=== PATIENT | female | born 1945 | race Caucasian/White ===

== ENCOUNTER 2021-05-07 10:29 | Inpatient (IN) | payer MEDICARE ==
[2021-05-07] MEDS ORDERED: Diltiazem 125 MG/25 ML ONE ×3 (11:11→22:02)
[2021-05-07 11:39] LABS: Hemoglobin 14.8 g/dL (12.0-16.0); Mean Corpuscular HGB CONC 33.3 g/dL (32.0-36.0); Mean Corpuscular Hemoglobin 30.9 pg (27.0-31.0); Mean Corpuscular Volume 92.7 fL (78.0-98.0); Mean Platelet Volume 9.2 fL (7.4-10.4); Platelet Count 231 thou/uL (130-400); RBC Distribution Width 12.9 % (11.5-14.5); Red Blood Cell (RBC) Count 4.79 mill/uL (4.20-5.40); White Blood Cell (WBC) Count 11.9 thou/uL (4.8-10.8)
[2021-05-07 11:40] LABS: SARS-CoV-2 NAA Rapid Test DETECTED (NotDetected)
[2021-05-07 11:58] LABS: INR-International Normal Ratio 0.9; PTT 26.1 sec (22.9-36.1); Prothrombin Time 12.3 sec (12.0-14.7)
[2021-05-07 12:00] LABS: Band 3 % (5-11); Lymphocytes 6 % (21-51); MDiff Complete? YES; Monocytes 2 % (0-10); Neutrophil 89 % (42-75); Platelet Morphology Comment Appears Adequate
[2021-05-07 12:07] LABS: D-Dimer Test 3.79 *mcg/mL (0.27-0.43)
[2021-05-07 12:29] LABS: CKMB 3.2 ng/mL (0-6.6)
[2021-05-07 12:34] LABS: ALT (SGPT) 26 U/L (8-55); AST (SGOT) 54 U/L (5-34); Albumin 3.3 g/dL (3.4-4.8); Alkaline Phosphatase 143 U/L (40-110); Anion Gap 17 mmol/L (10-20); BUN (Urea Nitrogen) 27 mg/dL (9.8-20.1); Bilirubin, Total 0.5 mg/dL (0.2-1.2); CK (CPK) 49 U/L (29-168); Calc. Creatinine Clearance 0 mL/min (70-130); Calcium 9.5 mg/dL (7.8-10.44); Carbon Dioxide 20 mmol/L (23-31); Chloride 105 mmol/L (98-107); Globulin 3.5 g/dL (2.4-3.5); Glucose 113 mg/dL (83-110); Potassium 4.9 mmol/L (3.5-5.1); Protein, Total 6.8 g/dL (5.8-8.1); Sodium 137 mmol/L (136-145)
[2021-05-07] MEDS ORDERED: Albuterol 200 PUFF (6.7GM INHALER) ONE (13:44)
[2021-05-07] MEDS ORDERED: Amiodarone 150 MG in Dextrose 5% in Water 100 ML IVPB SCH (15:00)
[2021-05-07] MEDS ORDERED: Amiodarone In Dextrose 200 ML IVPB SCH (15:15)
[2021-05-07 15:53] LABS: Lactic Acid 1.5 mmol/L (0.5-2.2)
[2021-05-07] MEDS ORDERED: Ondansetron PF 4 MG/2 ML Vial IVP PRN (21:51)
[2021-05-07] MEDS ORDERED: Benzonatate 100 MG CAP PO PRN (21:51)
[2021-05-07] MEDS ORDERED: Ondansetron ODT 4 MG TAB PO PRN (21:51)
[2021-05-07] MEDS ORDERED: hydrALAZINE 20 MG/ML VIAL SLOW IVP PRN (21:51)
[2021-05-07] MEDS ORDERED: Dexamethasone 10 MG/ML VIAL SLOW IVP SCH (22:00)
[2021-05-07] MEDS ORDERED: Enoxaparin Sodium 100 MG/ML SYRINGE SC SCH (22:00)
[2021-05-07] MEDS ORDERED: Famotidine 20 MG TAB PO SCH (22:00)
[2021-05-07] MEDS ORDERED: Cholecalciferol 1,000 UNITS (25 MCG) TAB PO SCH (22:00)
[2021-05-07] MEDS ORDERED: Acetaminophen 325 MG TAB ONE ×2 (22:15→22:16)
[2021-05-07] MEDS ORDERED: Enoxaparin Sodium 100 MG/ML SYRINGE ONE (22:17)
[2021-05-07] MEDS ORDERED: Cholecalciferol 1,000 UNITS (25 MCG) TAB ONE (22:20)
[2021-05-07] MEDS ORDERED: Pharmacy to Dose REMDESIVIR IVPB PRN (22:23)
[2021-05-07] MEDS: Acetaminophen 500 MG TAB PO PRN (22:24)
[2021-05-07] MEDS ORDERED: Pharmacy to Dose BARICITINIB PO PRN (22:25)
[2021-05-07] MEDS ORDERED: Acetaminophen 500 MG TAB ONE ×2 (22:27)
[2021-05-07] MEDS ORDERED: Metoprolol Tartrate 5 MG/5 ML VIAL ONE ×2 (22:36→23:22)
[2021-05-07] MEDS ORDERED: Dexamethasone 4 mg/ml Vial ONE (23:06)
[2021-05-07] MEDS: Metoprolol Tartrate 5 MG/5 ML VIAL IVP PRN ×2 (23:15→23:22)
[2021-05-07] MEDS: Amiodarone 450 MG, Admixture Fee 1 EACH in Dextrose 5% in Water 250 ML IVPB SCH (23:57)
[2021-05-08] MEDS ORDERED: Famotidine/PF 20 mg/2ml Vial ONE (00:08)
[2021-05-08 07:03] LABS: #Lymphocytes 0.5 thou/uL (1.20-3.40); #Monocytes 0.5 thou/uL (0.11-0.59); #Neutrophils 12.7 thou/uL (1.40-6.50); %Basophils 0.1 % (0.0-1.0); %Eosinophils 0.2 % (0.0-10.0); %Lymphocytes 3.8 % (21.0-51.0); %Monocytes 3.7 % (0.0-10.0); %Neutrophils 92.2 % (42.0-75.0); Hemoglobin 14.1 g/dL (12.0-16.0); Mean Corpuscular HGB CONC 31.7 g/dL (32.0-36.0); Mean Corpuscular Hemoglobin 29.5 pg (27.0-31.0); Mean Corpuscular Volume 93.1 fL (78.0-98.0); Mean Platelet Volume 8.4 fL (7.4-10.4); Platelet Count 179 thou/uL (130-400); Red Blood Cell (RBC) Count 4.77 mill/uL (4.20-5.40); White Blood Cell (WBC) Count 13.8 thou/uL (4.8-10.8)
[2021-05-08 07:18] LABS: ALT (SGPT) 22 U/L (8-55); AST (SGOT) 47 U/L (5-34); Albumin 3.2 g/dL (3.4-4.8); Alkaline Phosphatase 150 U/L (40-110); Anion Gap 13 mmol/L (10-20); BUN (Urea Nitrogen) 31 mg/dL (9.8-20.1); Bilirubin, Total 0.5 mg/dL (0.2-1.2); CRP (Inflammatory) 11.58 mg/dL (= or < 0.5); Calc. Creatinine Clearance 50 mL/min (70-130); Calcium 9.6 mg/dL (7.8-10.44); Carbon Dioxide 19 mmol/L (23-31); Chloride 102 mmol/L (98-107); Globulin 3.3 g/dL (2.4-3.5); Glucose 164 mg/dL (83-110); Magnesium 2.1 mg/dL (1.6-2.6); Potassium 4.9 mmol/L (3.5-5.1); Protein, Total 6.5 g/dL (5.8-8.1); Sodium 129 mmol/L (136-145)
[2021-05-08] MEDS ORDERED: Diltiazem 125 MG/25 ML ONE (07:41)
[2021-05-08] MEDS ORDERED: Lorazepam 2 MG/ML VIAL ONE (08:04)
[2021-05-08] MEDS ORDERED: Digoxin 0.5 MG/2 ML AMP ONE ×3 (08:09→14:09)
[2021-05-08] MEDS ORDERED: Digoxin 0.5 MG/2 ML AMP SLOW IVP SCH ×3 (08:15→20:00)
[2021-05-08] MEDS ORDERED: Sodium Chloride 0.9% 1,000 ML IV SCH (08:15)
[2021-05-08] MEDS ORDERED: Lorazepam 2 MG/ML VIAL SLOW IVP SCH (08:15)
[2021-05-08] MEDS ORDERED: REMDESIVIR 200 MG in Sodium Chloride 0.9% 250 ML 210 ML IV SCH (08:45)
[2021-05-08] MEDS ORDERED: Enoxaparin Sodium 100 MG/ML SYRINGE ONE (09:01)
[2021-05-08] MEDS ORDERED: Dexamethasone 4 mg/ml Vial ONE (09:01)
[2021-05-08] MEDS ORDERED: Zinc Sulfate 220 MG CAP ONE (09:03)
[2021-05-08] MEDS ORDERED: Ascorbic Acid 500 mg Chewable Tablet ONE (09:04)
[2021-05-08] MEDS: Dexamethasone 10 MG/ML VIAL SLOW IVP SCH ×2 (09:08→21:49)
[2021-05-08] MEDS: BARICITINIB 2 MG TAB PO SCH (09:09)
[2021-05-08] MEDS: Ascorbic Acid 500 mg Chewable Tablet PO SCH (09:09)
[2021-05-08] MEDS: Zinc Sulfate 220 MG CAP PO SCH (09:09)
[2021-05-08] MEDS: Sodium Chloride 0.9% 1,000 ML IV SCH ×2 (09:10→21:12)
[2021-05-08] MEDS ORDERED: Furosemide 20 MG/2 ML VIAL SLOW IVP SCH (11:35)
[2021-05-08] MEDS ORDERED: Furosemide 20 MG/2 ML VIAL ONE (11:40)
[2021-05-08] MEDS: Digoxin 0.5 MG/2 ML AMP SLOW IVP SCH ×3 (14:04→14:13)
[2021-05-08 14:18] VITALS: BP 131/74
[2021-05-08] MEDS: Famotidine 20 MG TAB PO SCH (21:17)
[2021-05-08] MEDS: Cholecalciferol 1,000 UNITS (25 MCG) TAB PO SCH (21:17)
[2021-05-08] MEDS: Cepastat Lozenges 1 LOZ PO PRN (23:18)
[2021-05-08] MEDS: Acetaminophen 500 MG TAB PO PRN (23:31)
[2021-05-09] MEDS: Amiodarone 450 MG, Admixture Fee 1 EACH in Dextrose 5% in Water 250 ML IVPB SCH ×2 (03:12→19:41)
[2021-05-09 03:40] LABS: #Lymphocytes 0.6 thou/uL (1.20-3.40); #Monocytes 0.4 thou/uL (0.11-0.59); #Neutrophils 8.7 thou/uL (1.40-6.50); %Basophils 0.1 % (0.0-1.0); %Eosinophils 0.2 % (0.0-10.0); %Lymphocytes 6.5 % (21.0-51.0); %Monocytes 4.4 % (0.0-10.0); %Neutrophils 88.9 % (42.0-75.0); Hemoglobin 13.3 g/dL (12.0-16.0); Mean Corpuscular HGB CONC 32.2 g/dL (32.0-36.0); Mean Corpuscular Hemoglobin 30.2 pg (27.0-31.0); Mean Corpuscular Volume 93.7 fL (78.0-98.0); Mean Platelet Volume 8.4 fL (7.4-10.4); Platelet Count 190 thou/uL (130-400); Red Blood Cell (RBC) Count 4.42 mill/uL (4.20-5.40); White Blood Cell (WBC) Count 9.8 thou/uL (4.8-10.8)
[2021-05-09 03:56] LABS: ALT (SGPT) 21 U/L (8-55); AST (SGOT) 32 U/L (5-34); Albumin 2.9 g/dL (3.4-4.8); Alkaline Phosphatase 149 U/L (40-110); Anion Gap 12 mmol/L (10-20); BUN (Urea Nitrogen) 29 mg/dL (9.8-20.1); Bilirubin, Total 0.4 mg/dL (0.2-1.2); Calc. Creatinine Clearance 63 mL/min (70-130); Calcium 9.2 mg/dL (7.8-10.44); Carbon Dioxide 22 mmol/L (23-31); Chloride 106 mmol/L (98-107); Globulin 3.1 g/dL (2.4-3.5); Glucose 142 mg/dL (83-110); Magnesium 1.9 mg/dL (1.6-2.6); Potassium 5.2 mmol/L (3.5-5.1); Sodium 135 mmol/L (136-145)
[2021-05-09 03:57] LABS: Digoxin 4.39 ng/mL (0.8-2.0)
[2021-05-09] MEDS: Acetaminophen 500 MG TAB PO PRN ×3 (05:32→21:08)
[2021-05-09] MEDS: Metoprolol Tartrate 25 MG TAB PO SCH ×3 (09:31→19:42)
[2021-05-09] MEDS: Dexamethasone 10 MG/ML VIAL SLOW IVP SCH ×2 (09:31→19:42)
[2021-05-09] MEDS: Ascorbic Acid 500 mg Chewable Tablet PO SCH (09:31)
[2021-05-09] MEDS: Zinc Sulfate 220 MG CAP PO SCH (09:31)
[2021-05-09] MEDS: BARICITINIB 2 MG TAB PO SCH (09:31)
[2021-05-09] MEDS: Enoxaparin Sodium 100 MG/ML SYRINGE SC SCH ×2 (09:31→19:42)
[2021-05-09] MEDS: REMDESIVIR 100 MG in Sodium Chloride 0.9% 250 ML 230 ML IV SCH (09:31)
[2021-05-09] MEDS: Sodium Chloride 0.9% 1,000 ML IV SCH ×2 (09:42→19:41)
[2021-05-09] MEDS: Famotidine 20 MG TAB PO SCH (19:41)
[2021-05-09] MEDS: Cholecalciferol 1,000 UNITS (25 MCG) TAB PO SCH (19:41)
[2021-05-10] MEDS: Sodium Chloride 0.9% 1,000 ML IV SCH (03:28)
[2021-05-10] MEDS: Acetaminophen 500 MG TAB PO PRN ×2 (03:30→19:55)
[2021-05-10] MEDS: Cepastat Lozenges 1 LOZ PO PRN ×2 (03:56→10:20)
[2021-05-10 04:14] LABS: Digoxin 1.84 ng/mL (0.8-2.0)
[2021-05-10 04:20] LABS: Anion Gap 12 mmol/L (10-20); BUN (Urea Nitrogen) 25 mg/dL (9.8-20.1); CRP (Inflammatory) 4.39 mg/dL (= or < 0.5); Calc. Creatinine Clearance 69 mL/min (70-130); Calcium 9.2 mg/dL (7.8-10.44); Carbon Dioxide 23 mmol/L (23-31); Chloride 105 mmol/L (98-107); Glucose 149 mg/dL (83-110); Magnesium 1.9 mg/dL (1.6-2.6); Potassium 5.8 mmol/L (3.5-5.1); Sodium 134 mmol/L (136-145)
[2021-05-10] MEDS ORDERED: Furosemide 40 MG/4 ML VIAL SLOW IVP SCH (09:45)
[2021-05-10] MEDS: Digoxin 0.125 MG TAB PO SCH (10:18)
[2021-05-10] MEDS: Metoprolol Tartrate 50 MG TAB PO SCH ×2 (10:18→19:57)
[2021-05-10] MEDS: REMDESIVIR 100 MG in Sodium Chloride 0.9% 250 ML 230 ML IV SCH (10:19)
[2021-05-10] MEDS: Ascorbic Acid 500 mg Chewable Tablet PO SCH (10:20)
[2021-05-10] MEDS: Enoxaparin Sodium 100 MG/ML SYRINGE SC SCH ×2 (10:20→19:56)
[2021-05-10] MEDS: BARICITINIB 2 MG TAB PO SCH (10:20)
[2021-05-10] MEDS: Zinc Sulfate 220 MG CAP PO SCH (10:21)
[2021-05-10] MEDS: Dexamethasone 10 MG/ML VIAL SLOW IVP SCH ×2 (10:22→21:30)
[2021-05-10] MEDS: Amiodarone 450 MG, Admixture Fee 1 EACH in Dextrose 5% in Water 250 ML IVPB SCH (10:58)
[2021-05-10] MEDS: Diltiazem 125 MG in Sodium Chloride 0.9% 100 ML IVPB SCH ×2 (10:59→23:00)
[2021-05-10 16:52] LABS: Potassium 4.9 mmol/L (3.5-5.1)
[2021-05-10] MEDS: Famotidine 20 MG TAB PO SCH (19:55)
[2021-05-10] MEDS: Cholecalciferol 1,000 UNITS (25 MCG) TAB PO SCH (21:30)
[2021-05-11] MEDS: Amiodarone 450 MG, Admixture Fee 1 EACH in Dextrose 5% in Water 250 ML IVPB SCH ×2 (03:12→18:43)
[2021-05-11] MEDS: Acetaminophen 500 MG TAB PO PRN ×2 (03:14→18:51)
[2021-05-11 07:17] LABS: Digoxin 1.56 ng/mL (0.8-2.0)
[2021-05-11 07:20] LABS: Anion Gap 13 mmol/L (10-20); BUN (Urea Nitrogen) 30 mg/dL (9.8-20.1); Calc. Creatinine Clearance 61 mL/min (70-130); Calcium 9.7 mg/dL (7.8-10.44); Carbon Dioxide 26 mmol/L (23-31); Chloride 102 mmol/L (98-107); Glucose 159 mg/dL (83-110); Potassium 5.5 mmol/L (3.5-5.1); Sodium 135 mmol/L (136-145)
[2021-05-11 07:21] LABS: Hemoglobin 13.8 g/dL (12.0-16.0); Mean Corpuscular HGB CONC 30.5 g/dL (32.0-36.0); Mean Corpuscular Hemoglobin 28.7 pg (27.0-31.0); Mean Corpuscular Volume 94.1 fL (78.0-98.0); Mean Platelet Volume 8.2 fL (7.4-10.4); Platelet Count 260 thou/uL (130-400); White Blood Cell (WBC) Count 19.8 thou/uL (4.8-10.8)
[2021-05-11 08:16] LABS: Band 1 % (5-11); Lymphocytes 8 % (21-51); MDiff Complete? YES; Monocytes 8 % (0-10); Neutrophil 83 % (42-75); Platelet Morphology Comment Appears Adequate; RBC Morphology Normal
[2021-05-11] MEDS: Ascorbic Acid 500 mg Chewable Tablet PO SCH (08:25)
[2021-05-11] MEDS: Zinc Sulfate 220 MG CAP PO SCH (08:25)
[2021-05-11] MEDS: Enoxaparin Sodium 100 MG/ML SYRINGE SC SCH ×2 (08:26→22:13)
[2021-05-11] MEDS: Metoprolol Tartrate 50 MG TAB PO SCH ×2 (08:26→22:17)
[2021-05-11] MEDS: BARICITINIB 2 MG TAB PO SCH (08:26)
[2021-05-11] MEDS: Dexamethasone 10 MG/ML VIAL SLOW IVP SCH ×2 (08:26→22:16)
[2021-05-11] MEDS: Digoxin 0.125 MG TAB PO SCH (08:26)
[2021-05-11] MEDS: Diltiazem 125 MG in Sodium Chloride 0.9% 100 ML IVPB SCH (09:26)
[2021-05-11] MEDS: REMDESIVIR 100 MG in Sodium Chloride 0.9% 250 ML 230 ML IV SCH (09:27)
[2021-05-11] MEDS: Cepastat Lozenges 1 LOZ PO PRN (18:51)
[2021-05-11 19:44] LABS: Potassium 5.2 mmol/L (3.5-5.1)
[2021-05-11] MEDS: Famotidine 20 MG TAB PO SCH (22:14)
[2021-05-11] MEDS: Cholecalciferol 1,000 UNITS (25 MCG) TAB PO SCH (22:15)
[2021-05-12 06:17] LABS: Hemoglobin 13.8 g/dL (12.0-16.0); Mean Corpuscular HGB CONC 30.9 g/dL (32.0-36.0); Mean Corpuscular Hemoglobin 28.8 pg (27.0-31.0); Mean Corpuscular Volume 93.3 fL (78.0-98.0); Mean Platelet Volume 8.2 fL (7.4-10.4); Platelet Count 271 thou/uL (130-400); RBC Distribution Width 13.1 % (11.5-14.5); Red Blood Cell (RBC) Count 4.79 mill/uL (4.20-5.40); White Blood Cell (WBC) Count 22.5 thou/uL (4.8-10.8)
[2021-05-12 06:37] LABS: Digoxin 1.16 ng/mL (0.8-2.0)
[2021-05-12 06:41] LABS: ALT (SGPT) 81 U/L (8-55); AST (SGOT) 86 U/L (5-34); Albumin 2.7 g/dL (3.4-4.8); Alkaline Phosphatase 242 U/L (40-110); Anion Gap 12 mmol/L (10-20); BUN (Urea Nitrogen) 33 mg/dL (9.8-20.1); Bilirubin, Direct 0.5 mg/dL (0.1-0.3); Bilirubin, Total 0.8 mg/dL (0.2-1.2); Calc. Creatinine Clearance 65 mL/min (70-130); Calcium 9.3 mg/dL (7.8-10.44); Carbon Dioxide 27 mmol/L (23-31); Chloride 105 mmol/L (98-107); Glucose 159 mg/dL (83-110); Potassium 4.9 mmol/L (3.5-5.1); Protein, Total 5.7 g/dL (5.8-8.1); Sodium 139 mmol/L (136-145)
[2021-05-12 06:57] LABS: Band 1 % (5-11); Lymphocytes 7 % (21-51); MDiff Complete? YES; Monocytes 2 % (0-10); Neutrophil 90 % (42-75); Nucleated RBC 1 % (0); Platelet Morphology Comment Appears Adequate; RBC Morphology Normal
[2021-05-12] MEDS: Digoxin 0.125 MG TAB PO SCH (09:09)
[2021-05-12] MEDS: Ascorbic Acid 500 mg Chewable Tablet PO SCH (09:09)
[2021-05-12] MEDS: Dexamethasone 10 MG/ML VIAL SLOW IVP SCH ×2 (09:09→21:17)
[2021-05-12] MEDS: Metoprolol Tartrate 50 MG TAB PO SCH ×2 (09:09→21:18)
[2021-05-12] MEDS: Zinc Sulfate 220 MG CAP PO SCH (09:09)
[2021-05-12] MEDS: BARICITINIB 2 MG TAB PO SCH (09:10)
[2021-05-12] MEDS: Enoxaparin Sodium 100 MG/ML SYRINGE SC SCH ×2 (09:10→21:17)
[2021-05-12] MEDS: REMDESIVIR 100 MG in Sodium Chloride 0.9% 250 ML 230 ML IV SCH (09:51)
[2021-05-12] MEDS: Acetaminophen 500 MG TAB PO PRN ×2 (11:14→21:34)
[2021-05-12] MEDS: Cholecalciferol 1,000 UNITS (25 MCG) TAB PO SCH (21:17)
[2021-05-12] MEDS: Famotidine 20 MG TAB PO SCH (21:18)
[2021-05-13] MEDS: Amiodarone 450 MG, Admixture Fee 1 EACH in Dextrose 5% in Water 250 ML IVPB SCH (00:55)
[2021-05-13] MEDS: Diltiazem 125 MG in Sodium Chloride 0.9% 100 ML IVPB SCH (04:20)
[2021-05-13] MEDS: Acetaminophen 500 MG TAB PO PRN ×2 (04:20→11:14)
[2021-05-13 04:46] LABS: Anion Gap 14 mmol/L (10-20); BUN (Urea Nitrogen) 35 mg/dL (9.8-20.1); Calc. Creatinine Clearance 76 mL/min (70-130); Calcium 9.1 mg/dL (7.8-10.44); Carbon Dioxide 24 mmol/L (23-31); Chloride 103 mmol/L (98-107); Glucose 151 mg/dL (83-110); Potassium 4.7 mmol/L (3.5-5.1); Sodium 136 mmol/L (136-145)
[2021-05-13 05:18] LABS: Band 3 % (5-11); Hemoglobin 13.7 g/dL (12.0-16.0); MDiff Complete? YES; Mean Corpuscular HGB CONC 32.1 g/dL (32.0-36.0); Mean Corpuscular Hemoglobin 29.8 pg (27.0-31.0); Mean Corpuscular Volume 92.8 fL (78.0-98.0); Mean Platelet Volume 8.5 fL (7.4-10.4); Monocytes 5 % (0-10); Myelocyte 1 % (0-0); Neutrophil 91 % (42-75); Platelet Count 275 thou/uL (130-400); RBC Distribution Width 13.1 % (11.5-14.5); Red Blood Cell (RBC) Count 4.62 mill/uL (4.20-5.40); White Blood Cell (WBC) Count 21.3 thou/uL (4.8-10.8)
[2021-05-13 07:02] LABS: Digoxin 1.11 ng/mL (0.8-2.0)
[2021-05-13] MEDS: Dexamethasone 10 MG/ML VIAL SLOW IVP SCH ×2 (09:11→20:17)
[2021-05-13] MEDS: Enoxaparin Sodium 100 MG/ML SYRINGE SC SCH ×2 (09:11→20:16)
[2021-05-13] MEDS: Ascorbic Acid 500 mg Chewable Tablet PO SCH (09:11)
[2021-05-13] MEDS: Zinc Sulfate 220 MG CAP PO SCH (09:11)
[2021-05-13] MEDS: Digoxin 0.125 MG TAB PO SCH (09:12)
[2021-05-13] MEDS: BARICITINIB 2 MG TAB PO SCH (09:12)
[2021-05-13] MEDS: Metoprolol Tartrate 50 MG TAB PO SCH ×2 (09:12→20:17)
[2021-05-13] MEDS: Famotidine 20 MG TAB PO SCH (20:17)
[2021-05-13] MEDS: Cholecalciferol 1,000 UNITS (25 MCG) TAB PO SCH (20:17)
[2021-05-14] MEDS: Diltiazem 125 MG in Sodium Chloride 0.9% 100 ML IVPB SCH ×2 (03:57→23:26)
[2021-05-14 04:34] LABS: ALT (SGPT) 97 U/L (8-55); AST (SGOT) 72 U/L (5-34); Albumin 2.7 g/dL (3.4-4.8); Alkaline Phosphatase 232 U/L (40-110); Anion Gap 15 mmol/L (10-20); BUN (Urea Nitrogen) 32 mg/dL (9.8-20.1); CRP (Inflammatory) 11.88 mg/dL (= or < 0.5); Calc. Creatinine Clearance 80 mL/min (70-130); Calcium 8.7 mg/dL (7.8-10.44); Carbon Dioxide 23 mmol/L (23-31); Chloride 103 mmol/L (98-107); Globulin 2.9 g/dL (2.4-3.5); Glucose 175 mg/dL (83-110); Protein, Total 5.6 g/dL (5.8-8.1); Sodium 136 mmol/L (136-145)
[2021-05-14 04:44] LABS: Digoxin 0.97 ng/mL (0.8-2.0)
[2021-05-14] MEDS: Amiodarone 450 MG, Admixture Fee 1 EACH in Dextrose 5% in Water 250 ML IVPB SCH ×2 (05:18→20:03)
[2021-05-14] MEDS: Acetaminophen 500 MG TAB PO PRN (05:26)
[2021-05-14 05:34] LABS: Band 7 % (5-11); Hemoglobin 13.9 g/dL (12.0-16.0); Lymphocytes 2 % (21-51); MDiff Complete? YES; Mean Corpuscular Hemoglobin 29.2 pg (27.0-31.0); Mean Platelet Volume 9.2 fL (7.4-10.4); Monocytes 1 % (0-10); Myelocyte 1 % (0-0); Neutrophil 89 % (42-75); Platelet Count 259 thou/uL (130-400); RBC Distribution Width 13.3 % (11.5-14.5); Red Blood Cell (RBC) Count 4.78 mill/uL (4.20-5.40)
[2021-05-14] MEDS: Dexamethasone 10 MG/ML VIAL SLOW IVP SCH ×2 (08:23→20:04)
[2021-05-14] MEDS: Digoxin 0.125 MG TAB PO SCH (08:23)
[2021-05-14] MEDS: Enoxaparin Sodium 100 MG/ML SYRINGE SC SCH ×2 (08:23→20:04)
[2021-05-14] MEDS: BARICITINIB 2 MG TAB PO SCH (08:24)
[2021-05-14] MEDS: Ascorbic Acid 500 mg Chewable Tablet PO SCH (08:24)
[2021-05-14] MEDS: Metoprolol Tartrate 50 MG TAB PO SCH ×2 (08:24→20:04)
[2021-05-14] MEDS: Zinc Sulfate 220 MG CAP PO SCH (08:24)
[2021-05-14] MEDS ORDERED: Digoxin 0.5 MG/2 ML AMP SLOW IVP SCH (09:45)
[2021-05-14] MEDS: Cholecalciferol 1,000 UNITS (25 MCG) TAB PO SCH (20:04)
[2021-05-14] MEDS: Famotidine 20 MG TAB PO SCH (20:04)
[2021-05-15] MEDS: Cepastat Lozenges 1 LOZ PO PRN (03:00)
[2021-05-15 07:10] LABS: ALT (SGPT) 88 U/L (8-55); AST (SGOT) 52 U/L (5-34); Albumin 2.7 g/dL (3.4-4.8); Alkaline Phosphatase 229 U/L (40-110); Bilirubin, Direct 0.4 mg/dL (0.1-0.3); Bilirubin, Total 0.9 mg/dL (0.2-1.2); Protein, Total 5.9 g/dL (5.8-8.1)
[2021-05-15 07:11] LABS: Digoxin 1.21 ng/mL (0.8-2.0)
[2021-05-15] MEDS: Enoxaparin Sodium 100 MG/ML SYRINGE SC SCH ×2 (07:53→20:26)
[2021-05-15] MEDS: Dexamethasone 10 MG/ML VIAL SLOW IVP SCH ×2 (07:53→20:30)
[2021-05-15] MEDS: Metoprolol Tartrate 50 MG TAB PO SCH ×2 (07:54→20:26)
[2021-05-15] MEDS: Ascorbic Acid 500 mg Chewable Tablet PO SCH (07:54)
[2021-05-15] MEDS: Zinc Sulfate 220 MG CAP PO SCH (07:54)
[2021-05-15] MEDS: Digoxin 0.125 MG TAB PO SCH (07:54)
[2021-05-15] MEDS: BARICITINIB 2 MG TAB PO SCH (07:54)
[2021-05-15] MEDS: Cholecalciferol 1,000 UNITS (25 MCG) TAB PO SCH (20:26)
[2021-05-15] MEDS: Famotidine 20 MG TAB PO SCH (20:26)
[2021-05-15] MEDS: Acetaminophen 500 MG TAB PO PRN (21:12)
[2021-05-15] MEDS: Diltiazem 125 MG in Sodium Chloride 0.9% 100 ML IVPB SCH (23:29)
[2021-05-16] MEDS: Cepastat Lozenges 1 LOZ PO PRN (00:43)
[2021-05-16] MEDS: Amiodarone 450 MG, Admixture Fee 1 EACH in Dextrose 5% in Water 250 ML IVPB SCH (04:34)
[2021-05-16] MEDS: Diltiazem 125 MG in Sodium Chloride 0.9% 100 ML IVPB SCH ×2 (07:24→20:38)
[2021-05-16 07:52] LABS: Digoxin 1.06 ng/mL (0.8-2.0)
[2021-05-16] MEDS: BARICITINIB 2 MG TAB PO SCH (10:12)
[2021-05-16] MEDS: Zinc Sulfate 220 MG CAP PO SCH (10:12)
[2021-05-16] MEDS: Metoprolol Tartrate 50 MG TAB PO SCH ×2 (10:12→20:38)
[2021-05-16] MEDS: Amiodarone 200 MG TAB PO SCH ×2 (10:12→20:38)
[2021-05-16] MEDS: Ascorbic Acid 500 mg Chewable Tablet PO SCH (10:12)
[2021-05-16] MEDS: Digoxin 0.125 MG TAB PO SCH (10:13)
[2021-05-16] MEDS: Dexamethasone 10 MG/ML VIAL SLOW IVP SCH ×2 (10:13→20:38)
[2021-05-16] MEDS: Apixaban 5 MG TAB PO SCH ×2 (10:13→20:38)
[2021-05-16] MEDS: Famotidine 20 MG TAB PO SCH (20:38)
[2021-05-16] MEDS: Cholecalciferol 1,000 UNITS (25 MCG) TAB PO SCH (20:39)
[2021-05-17] MEDS: Diltiazem 125 MG in Sodium Chloride 0.9% 100 ML IVPB SCH (04:08)
[2021-05-17 04:55] LABS: Digoxin 1.13 ng/mL (0.8-2.0)
[2021-05-17] MEDS ORDERED: Digoxin 0.5 MG/2 ML AMP SLOW IVP SCH (08:15)
[2021-05-17] MEDS: Dexamethasone 10 MG/ML VIAL SLOW IVP SCH ×2 (08:44→20:53)
[2021-05-17] MEDS: Digoxin 0.125 MG TAB PO SCH (09:13)
[2021-05-17] MEDS: BARICITINIB 2 MG TAB PO SCH (09:13)
[2021-05-17] MEDS: Amiodarone 200 MG TAB PO SCH ×2 (09:13→20:54)
[2021-05-17] MEDS: Apixaban 5 MG TAB PO SCH ×2 (09:13→20:54)
[2021-05-17] MEDS: Metoprolol Tartrate 50 MG TAB PO SCH ×2 (09:13→20:54)
[2021-05-17] MEDS: Zinc Sulfate 220 MG CAP PO SCH (09:14)
[2021-05-17] MEDS: Ascorbic Acid 500 mg Chewable Tablet PO SCH (09:14)
[2021-05-17] MEDS: Lorazepam 2 MG/ML VIAL SLOW IVP PRN ×3 (10:06→21:02)
[2021-05-17] MEDS: Famotidine 20 MG TAB PO SCH (20:54)
[2021-05-17] MEDS: Cholecalciferol 1,000 UNITS (25 MCG) TAB PO SCH (20:54)
[2021-05-18 04:34] VITALS: TEMP 97.5
[2021-05-18] MEDS: Lorazepam 2 MG/ML VIAL SLOW IVP PRN (06:09)
[2021-05-18] MEDS: Ascorbic Acid 500 mg Chewable Tablet PO SCH (07:33)
[2021-05-18] MEDS: Apixaban 5 MG TAB PO SCH (07:33)
[2021-05-18] MEDS: Amiodarone 200 MG TAB PO SCH (07:33)
[2021-05-18] MEDS: BARICITINIB 2 MG TAB PO SCH (07:33)
[2021-05-18] MEDS: Zinc Sulfate 220 MG CAP PO SCH (07:34)
[2021-05-18] MEDS: Digoxin 0.125 MG TAB PO SCH (07:34)
[2021-05-18] MEDS: Metoprolol Tartrate 50 MG TAB PO SCH (07:34)
[2021-05-18 08:32] LABS: ALT (SGPT) 65 U/L (8-55); AST (SGOT) 37 U/L (5-34); Albumin 2.7 g/dL (3.4-4.8); Alkaline Phosphatase 215 U/L (40-110); Bilirubin, Direct 0.3 mg/dL (0.1-0.3); Protein, Total 5.9 g/dL (5.8-8.1)
[2021-05-18 09:00] VITALS: BMI 39.3
[2021-05-18] MEDS: Dexamethasone 10 MG/ML VIAL SLOW IVP SCH (09:08)
[2021-05-18] MEDS ORDERED: Lorazepam 2 MG/ML VIAL ONE ×3 (15:23→15:55)
[2021-05-18] MEDS ORDERED: Morphine 4 MG/ML VIAL ONE ×3 (15:23→15:55)
== END 2021-05-18 11:00 | disposition hospice, inpatient (51) | DRG 871 ==
LOC: ERS 10:29 → ERHOLD 14:52 → IMCU/EMU 05-08 15:14
PROVIDERS: ADMIT Family Medicine; ATTEND Internal Medicine
PROC: 8E0ZXY6 Isolation (ICD-10-PCS; principal; 2021-05-07)
PROC: 5A09557 Assistance with Respiratory Ventilation, Greater than 96 Consecutive Hours, Continuous Positive Airway Pressure (ICD-10-PCS; 2021-05-07)
PROC: XW033E5 Introduction of Remdesivir Anti-infective into Peripheral Vein, Percutaneous Approach, New Technology Group 5 (ICD-10-PCS; 2021-05-07)
PROC: XW0DXM6 Introduction of Baricitinib into Mouth and Pharynx, External Approach, New Technology Group 6 (ICD-10-PCS; 2021-05-07)
DX: A41.89 Other specified sepsis (principal); U07.1 COVID-19; J12.82 Pneumonia due to coronavirus disease 2019; J96.01 Acute respiratory failure with hypoxia; I21.A1 Myocardial infarction type 2; I48.20 Chronic atrial fibrillation, unspecified; E87.1 Hypo-osmolality and hyponatremia; N17.9 Acute kidney failure, unspecified; Z66 Do not resuscitate; Z51.5 Encounter for palliative care; N18.30 Chronic kidney disease, stage 3 unspecified; I12.9 Hypertensive chronic kidney disease with stage 1 through stage 4 chronic kidney disease, or unspecified chronic kidney disease; M06.9 Rheumatoid arthritis, unspecified; F32.9 Major depressive disorder, single episode, unspecified; Z96.659 Presence of unspecified artificial knee joint; E87.5 Hyperkalemia; Z90.49 Acquired absence of other specified parts of digestive tract; Z98.51 Tubal ligation status; Z98.890 Other specified postprocedural states; Z98.49 Cataract extraction status, unspecified eye; Z79.899 Other long term (current) drug therapy; Z78.1 Physical restraint status
CPT/HCPCS: 0240U; 36415; 36416; 71045; 80048; 80053; 80076; 80162; 82550; 82553; 82728; 83605; 83735; 83880; 84443; 84484; 85025; 85379; 85610; 85730; 86140; 93005; 93306; 94660; 94664; 94799; 96365; 96366; 96374; 96375; 96376; J0282; J1100; J1160; J1650; J1940; J2060; J3490; J7050; J7070; S0028